=== PATIENT | male | born 1965 | race Caucasian/White ===

== ENCOUNTER 2022-05-26 16:14 | Emergency (ER) | payer OTHER, MEDICAID ==
[~2022-05-26] VITALS: Ht 172.7 cm; Wt 68.0 kg
[2022-05-26 16:24] VITALS: BP 147/77
[2022-05-26 16:30] VITALS: BP 139/75
[2022-05-26 16:38] LABS: HEMATOCRIT 37.6 % (39.0-50.0); HEMOGLOBIN 12.4 g/dl (14.0-18.0); IMMATURE GRANULOCYTES 0.1 % (0.0-5.0); MEAN CELL VOLUME 90.4 fL CALC (80.0-100.0); MEAN CORPUSCULAR HGB 29.8 pG CALC (26.0-32.0); NEUT# 4.86 thou/uL (1.82-7.42); RED BLOOD COUNT 4.16 mill/uL (4.70-6.10)
[2022-05-26 16:46] VITALS: BP 148/81
[2022-05-26 16:54] LABS: ALBUMIN 4.2 g/dL (3.2-5.0); ALKALINE PHOSPHATASE 60 u/l (38-126); ANION GAP 13 (6-22 (CALC)); BILIRUBIN, TOTAL 0.4 mg/dL (0.0-1.4); BUN 11 mg/dL (9-20); BUN/CREATININE RATIO 10 (12-20 (CALC)); CARBON DIOXIDE 23 mmol/l (22-30); CHLORIDE 104 mmol/l (95-108); CREATININE 1.1 mg/dL (0.7-1.3); GFR FOR AFR.AMER. > 60 ML/MIN (>=60 (CALC)); GFR OTHER RACES > 60 ML/MIN (>=60 (CALC)); POTASSIUM 3.3 mmol/l (3.5-5.1); SGOT/AST 87 u/l (17-59); SODIUM 137 mmol/l (137-146); TOTAL PROTEIN 6.4 g/dL (6.3-8.2)
[2022-05-26] MEDS ORDERED: SUBOXONE1 MI1 SL (16:58)
[2022-05-26] MEDS ORDERED: PRILOSEC OTC20 MG PO (16:59)
[2022-05-26 17:00] VITALS: BP 146/78
[2022-05-26] MEDS ORDERED: MOTRIN800 MG PO (17:12)
[2022-05-26 17:15] VITALS: BP 141/75
[2022-05-26 17:30] VITALS: BP 127/80
== END 2022-05-26 18:19 | disposition home or self-care (01) | DRG 914 ==
LOC: ED 16:14
PROVIDERS: Emergency Medicine
DX: S29.9XXA Unspecified injury of thorax, initial encounter (principal); S00.81XA Abrasion of other part of head, initial encounter; S60.417A Abrasion of left little finger, initial encounter; S80.812A Abrasion, left lower leg, initial encounter; S80.811A Abrasion, right lower leg, initial encounter; V48.0XXA Car driver injured in noncollision transport accident in nontraffic accident, initial encounter

== ENCOUNTER 2022-05-28 09:11 | Emergency (ER) | payer OTHER, MEDICAID ==
[~2022-05-28] VITALS: Ht 172.7 cm; Wt 70.0 kg
[~2022-05-28 09:11] MED LIST: MOTRIN800 MG PO; PRILOSEC OTC20 MG PO; SUBOXONE1 MI1 SL
[2022-05-28] MEDS ORDERED: CEPHALEXIN500 MG PO (09:36)
[2022-05-28] MEDS ORDERED: BACTRIM DS1 TAB PO (09:36)
[2022-05-28 10:28] VITALS: BP 128/111
[2022-05-28 10:29] VITALS: BP 127/66
== END 2022-05-28 10:36 | disposition home or self-care (01) | DRG 603 ==
LOC: ED 09:11
DX: L03.114 Cellulitis of left upper limb (principal); L03.116 Cellulitis of left lower limb; T79.8XXA Other early complications of trauma, initial encounter

== ENCOUNTER 2022-08-21 14:50 | Emergency (ER) | payer SELFPAY ==
[~2022-08-21] VITALS: Ht 172.7 cm; Wt 72.7 kg
[~2022-08-21 14:50] MED LIST changes: +BACTRIM DS1 TAB PO; +CEPHALEXIN500 MG PO
[2022-08-21] MEDS ORDERED: PREDNISONE50 MG PO (16:15)
[2022-08-21] MEDS ORDERED: PROVENTIL HFA IN (16:15)
[2022-08-21] MEDS ORDERED: ZPAK PO (16:15)
[2022-08-21 16:28] VITALS: BP 123/69
== END 2022-08-21 16:34 | disposition home or self-care (01) | DRG 195 ==
LOC: ED 14:50
DX: J10.1 Influenza due to other identified influenza virus with other respiratory manifestations (principal)

== ENCOUNTER 2022-09-11 23:45 | Emergency (ER) | payer SELFPAY ==
[~2022-09-11] VITALS: Ht 172.7 cm; Wt 71.6 kg
[~2022-09-11 23:45] MED LIST changes: +PREDNISONE50 MG PO; +PROVENTIL HFA IN; +ZPAK PO
[2022-09-11 23:55] VITALS: BP 133/79
[2022-09-12] VITALS: BP 130/80
[2022-09-12 00:15] VITALS: BP 137/81
[2022-09-12 00:22] LABS: BASO% 0.3 % (0-3); EOS% 1.3 % (0-8); HEMATOCRIT 40.3 % (39.0-50.0); HEMOGLOBIN 13.1 g/dl (14.0-18.0); IMMATURE GRANULOCYTES 0.2 % (0.0-5.0); LYMPH% 31.2 % (15-41); MEAN CELL VOLUME 89.6 fL CALC (80.0-100.0); MEAN CORPUSCULAR HGB 29.1 pG CALC (26.0-32.0); MEAN CORPUSCULAR HGB CONC 32.5 g/dL CAL (32.0-36.0); NEUT# 3.5 thou/uL (1.82-7.42); RED BLOOD COUNT 4.5 mill/uL (4.70-6.10); RED CELL DISTRI WIDTH 12.9 % (11.5-15.5)
[2022-09-12 00:31] VITALS: BP 128/71
[2022-09-12 00:35] LABS: ALBUMIN 3.6 g/dL (3.2-5.0); ALKALINE PHOSPHATASE 49 u/l (38-126); ANION GAP 9 (6-22 (CALC)); BUN 10 mg/dL (9-20); BUN/CREATININE RATIO 9 (12-20 (CALC)); CARBON DIOXIDE 24 mmol/l (22-30); CHLORIDE 112 mmol/l (95-108); CPK 68 u/l (55-170); CREATININE 1.1 mg/dL (0.7-1.3); GFR FOR AFR.AMER. > 60 ML/MIN (>=60 (CALC)); GFR OTHER RACES > 60 ML/MIN (>=60 (CALC)); MAGNESIUM 1.8 mg/dL (1.6-2.3); POTASSIUM 3.7 mmol/l (3.5-5.1); SODIUM 141 mmol/l (137-146); TOTAL PROTEIN 5.8 g/dL (6.3-8.2)
[2022-09-12 00:37] LABS: SGOT/AST 18 u/l (17-59)
[2022-09-12 00:46] VITALS: BP 130/88
[2022-09-12] MEDS ORDERED: NEURONTIN300 MG PO (00:56)
[2022-09-12 01:00] VITALS: BP 145/85
[2022-09-12 01:09] VITALS: BP 145/85
== END 2022-09-12 01:15 | disposition home or self-care (01) | DRG 556 ==
LOC: ED 23:45
PROVIDERS: Family Medicine
DX: M62.831 Muscle spasm of calf (principal)

== ENCOUNTER 2022-09-12 03:31 | Emergency (ER) | payer SELFPAY ==
[~2022-09-12] VITALS: Ht 172.7 cm; Wt 71.6 kg
[~2022-09-12 03:31] MED LIST changes: +NEURONTIN300 MG PO
[2022-09-12 04:10] VITALS: BP 135/80
== END 2022-09-12 04:15 | disposition home or self-care (01) | DRG 556 ==
LOC: ED 03:31
DX: M62.831 Muscle spasm of calf (principal)

== ENCOUNTER 2023-08-16 12:53 | Emergency (ER) | payer OTHER ==
[~2023-08-16] VITALS: Ht 172.7 cm; Wt 80.0 kg
[~2023-08-16 12:53] MED LIST changes: +NAPROXEN500 MG PO
[2023-08-16] MEDS ORDERED: KEFLEX500 MG PO (15:23)
[2023-08-16] MEDS ORDERED: TRAMADOL HYDROC50 M1 PO (15:23)
[2023-08-16 15:43] VITALS: BP 136/88
== END 2023-08-16 15:43 | disposition home or self-care (01) | DRG 605 ==
LOC: ED 12:53
PROC: 0HQFXZZ Repair Right Hand Skin, External Approach (ICD-10-PCS; principal; 2023-08-16)
DX: S61.212A Laceration without foreign body of right middle finger without damage to nail, initial encounter (principal); F17.290 Nicotine dependence, other tobacco product, uncomplicated; W23.0XXA Caught, crushed, jammed, or pinched between moving objects, initial encounter; Y93.89 Activity, other specified; Y92.89 Other specified places as the place of occurrence of the external cause; Y99.0 Civilian activity done for income or pay